=== PATIENT | male | born 1990 | race Caucasian/White ===

== ENCOUNTER 2017-09-10 22:20 | Emergency (ER) | payer SELFPAY ==
[2017-09-10 22:54] LABS: Basophils % (Auto) 0.3 % (0.0-1.8); Hematocrit 47.9 % (35.5-45.6); Hemoglobin 16.3 gm/dl (11.8-15.2); Mean Corpuscular HGB Conc 34 % (32-34); Mean Corpuscular Hemoglobin 30 pg (28-32); Mean Corpuscular Volume 89 fl (84-94); Platelet Count 229 K/mm3 (140-440); Red Blood Count 5.39 M/mm3 (3.65-5.03); Red Cell Distribution Width 12.7 % (13.2-15.2); White Blood Count 10.9 K/mm3 (4.5-11.0)
[2017-09-10 23:31] LABS: Anion Gap 22 mmol/L; BUN/Creatinine Ratio 10; Blood Urea Nitrogen 10 mg/dL (9-20); Calcium 9.7 mg/dL (8.4-10.2); Carbon Dioxide 22 mmol/L (22-30); Chloride 96.8 mmol/L (98-107); Glucose 108 mg/dL (75-100); Potassium 3.8 mmol/L (3.6-5.0); Sodium 137 mmol/L (137-145)
[2017-09-10 23:32] LABS: Alanine Aminotransferase 18 units/L (7-56); Albumin 4.6 g/dL (3.9-5); Alkaline Phosphatase 66 units/L (35-129)
[2017-09-10 23:33] LABS: Lipase 19 units/L (13-60)
[2017-09-11 02:17] LABS: Albumin/Globulin Ratio 1.5 %; Total Protein 7.6 g/dL (6.3-8.2)
[2017-09-11 05:19] LABS: Urine Drugs of Abuse Note Disclamer
[2017-09-11 05:27] LABS: Bilirubin,Urine NEG (Negative); Blood,Urine NEG (Negative); Ketones,Urine 80 mg/dL (Negative); Leukocyte Esterase,Urine NEG (Negative); Mucus,Urine 3+ /HPF; Nitrite,Urine NEG (Negative)
[2017-09-11 05:28] VITALS: BP 100/68
== END 2017-09-10 22:39 | disposition left against medical advice (07) ==
LOC: ED 22:20
DX: R10.9 Unspecified abdominal pain (principal); Z53.21 Procedure and treatment not carried out due to patient leaving prior to being seen by health care provider
CPT/HCPCS: 36415; 80053; 80307; 80320; 81001; 83690; 85025; G0480